=== PATIENT | female | born 1985 ===

== ENCOUNTER 2016-12-21 21:16 | Emergency (ER) | payer OTHER ==
[~2016-12-21] VITALS: Ht 165.1 cm; Wt 140.9 kg
[~2016-12-21 21:16] MED LIST: BNZN100C PO; GLU500 PO
[2016-12-21 21:26] VITALS: BP 148/78; PULSE 111; RESP 24; O2SAT 97
--- NOTE | 2016-12-21 22:19 | ED.REPORT ---
HPI-Extremity Problem Upper Date of Service December 21, 2016 ED Provider: Dr. Samosn Morrow MD A 31 year old female with a hx of type II DM presents to the ED with a right 1st finger laceration that occurred just prior to arrival. Patient was reportedly shredding cheese when the incident occurred. She began to express concern when the area continued to bleed. Last tetanus unknown. She denies any numbness or weakness in the extremity. Nursing Notes Stated Complaint: CUT ON RIGHT FIRST FINGER Chief Complaint: Extremity Trauma Nursing Notes Reviewed: Yes Allergies: Coded Allergies: codeine (Verified Adverse Reaction, 02/19/13) Scheduled Benzonatate-Expunged Drug, Do Not Renew! (Tessalon Pearles-Expunged Drug, Do Not Renew!) 100 Mg Capsule 1 CAP PO TIDP DO NOT CHEW Metformin-Expunged Drug, Do Not Renew! (Metformin-Expunged Drug, Do Not Renew!) 500 Mg Tablet 500 MG PO BID TAKE WITH EVENING MEAL General Time Seen by MD: 22:19 Chief Complaint Finger injury right 1 Hx Obtained From: Patient Arrived By: Walk-in Onset Occurred: Just prior to arrival Symptom Duration: Since onset Caused by: Accidental Location: : Finger right 1 Quality: Painful Severity: Current: Mild Severity: Maximum: Mild Associated with: Denies: Numb extremities, Weakness Pertinent Negative: Pt denies other symptoms Immunizations: Unknown Recent Healthcare: No recent doctor visit, No recent hospitalization Past Medical History Past Medical History Diabetes Mellitus Past Surgical History None reported. Social History Other Social History: Good social support, Local resident Ambulatory Status Independent Review of Systems Constitutional: Denies: Chills, Fever Musculoskeletal: Reports: Joint pain (1st right finger) Neurologic: Denies: Numbness, Weakness Complete sys rev & neg: except as marked. Physical Exam Initial Vital Signs Vital Signs (First) Date Time Temp Pulse Resp B/P Pulse Ox O2 Delivery O2 Flow Rate FiO2 12/21/16 21:26 36.4 111 24 148/78 97 Room Air Initial VS: Reviewed Head / Eyes: Atraumatic, Normocephalic, PERRL Neck: Supple, Non-tender, Full range of motion Lower Extremities: Vascular intact, Neuro intact, No swelling, No tenderness Skin: Warm, Dry, No cyanosis Neurologic: Alert, Oriented, Nonfocal Psychiatric: Mood/affect normal, Behavior normal, Normal thought content General/Constitutional: Awake, Alert, No acute distress Respiratory / Chest: Atraumatic, No respiratory distress Cardiovascular: Cap refill not delayed, Peripheral circulation NL, Pulses = bilaterally Upper Extremity / MS: Atraumatic, Inspection NL, Neurologic intact, Vascular intact Wrist / Hand: Atraumatic, Neurologic intact, Vascular intact Trauma / Burn / Environmental: Positive: Laceration (3mm laceration to 1st right finger) WRIST/HAND: Skin avulsion to the right 1st finger Procedures Laceration Management Time: 23:23 Procedure Performed by: ED physician Consent / Setup / Site Prep: Informed consent provided, Consent from patient , Time-out performed, Hand hygiene observed, Stand sterile technique Location of Wound: Skin avulsion to the right 1st finger, 3mm Digital Block: No Digit Involved: Thumb right Wound Preparation: Normal saline Irrigation: Copious Foreign Body Explore / Removal: Explored for foreign body Repair Skin: Dermabond Post-Procedure / Complications: Dressing applied, No complications, Condition improved, Tolerated procedure well, Patient stable Re-Eval/Medical Decision Source of Hx: Old records Re-Evaluation/Progress : Time of Eval: 23:26 Re-Evaluation/Progress Note: Procedure performed. Discussed plan for discharge, pt understands and agrees with plan. Counseled Regarding: Diagnosis, Need for follow-up, When/why to return to ED Discharge & Departure Impression: Primary Impression: Finger laceration Disposition: Home Discharge Condition All VS Reviewed: Yes Condition: Improved Patient Instructions: Finger Laceration (ED) Additional Instructions: You were seen here today for a laceration. Your laceration was fixed using glue. The glue should come off by itself in the next 7-10 days. Keep the area clean and dry. Shower using a plastic bag covering the area. Return if you develop any redness or swelling or any new or worsening symptoms. Referrals: Peg Maddox MD (PCP) Scribe Attestation Portions of this note were transcribed by Lynne New and Peter Savage. I, Dr. Morrow personally performed the history, physical exam and medical decision- making; I reviewed and confirmed the accuracy of the information in the transcribed note. Signed by: Dustin Kim, 12/21/16 [id number], Signed by: Dustin Ray, 12/21/16 [id number], copies to: Peg Maddox MD, Todd P DO December 21, 2016 22:19 LYNNE NEW December 21, 2016 22:26 PETER SAVAGE December 21, 2016 23:30
[2016-12-21] MEDS ORDERED: Tissue Adhesive Liq (CS Supplied) TOPICAL ONE (23:25)
[2016-12-21] MEDS ORDERED: TdaP Vaccine 0.5 mL Inj IM ONE (23:25)
[2016-12-21 23:44] VITALS: BP 138/80; PULSE 100; RESP 18; O2SAT 98
== END 2016-12-21 23:45 | disposition home or self-care (01) ==
LOC: SED 21:16
DX: S61.210A Laceration without foreign body of right index finger without damage to nail, initial encounter (principal); W26.9XXA Contact with unspecified sharp object(s), initial encounter; Y93.G3 Activity, cooking and baking; Y92.009 Unspecified place in unspecified non-institutional (private) residence as the place of occurrence of the external cause; Y99.8 Other external cause status; E11.9 Type 2 diabetes mellitus without complications; Z23 Encounter for immunization; Z88.5 Allergy status to narcotic agent